=== PATIENT | female | born 1995 | race Caucasian/White ===

== ENCOUNTER 2017-08-27 11:21 | Emergency (ER) | payer BC, OTHER ==
[~2017-08-27] VITALS: Ht 162.6 cm; Wt 58.4 kg
[~2017-08-27 11:21] MED LIST: BCPILLS PO
[2017-08-27 11:34] VITALS: TEMP 37; Ht 162.6 cm; Wt 58.4 kg
--- NOTE | 2017-08-27 11:57 | DIAGNOSTIC IMAGING REPORT ---
LEFT ANKLE 3 VIEWS CLINICAL HISTORY: Left ankle injury. FINDINGS: 3 views of left ankle are obtained. No prior studies are available for comparison at the time of dictation. The skeletal structures are well mineralized. No fracture is seen. The ankle mortise is intact. An os trigonum is incidentally noted. No joint effusion is seen. Mild soft tissue swelling is noted. IMPRESSION: There is no radiographic evidence of left ankle fracture. Electronically signed by: Andres Jin M.D. 08/27/2017 11:56 AM Dictated Date/Time: 08/27/2017 11:55 AM
[2017-08-27 12:48] VITALS: BP 127/71; PULSE 65; O2SAT 99
--- NOTE | 2017-08-27 15:07 | EMERGENCY ROOM VISIT NOTE ---
History First contact with patient: 11:37 Chief Complaint: ANKLE PAIN Stated Complaint: SWOLLEN BRUISED ANKLE History of Present Illness The patient is a 22 year old female who presents to the Emergency Room with complaints of persistent left ankle swelling and bruising. The patient reports that she attempted to block a shot, and when she came down, had a forced dorsiflexion of the ankle and now has pain over the lateral ankle region. She denies any pain extending into the mid foot, distal metatarsals, phalanges, calcaneus or Achilles tendon. Ring worsens her pain to a 5 out of 10. She currently rates her discomfort a 2 out of 10. She denies any paresthesias or numbness of the foot or toes. Review of Systems 10 system review was performed and was negative except for pertinent positives and negatives as indicated in history of present illness Past Medical/Surgical History Medical Problems: (1) History of multiple concussions Surgical Problems: (1) History of appendectomy (2) History of tonsillectomy Family History FH: cancer FH: heart disease Social History Smoking Status: Never Smoker Alcohol Use: occasionally Marital Status: single Housing Status: lives with roommate Occupation Status: Al[employer] student Current/Historical Medications Scheduled Control Pills ( Control Pills), 1 TAB PO DAILY Physical Exam Vital Signs Date Time Temp Pulse Resp B/P (MAP) Pulse Ox O2 Delivery O2 Flow Rate FiO2 08/27/17 12:48 65 18 127/71 99 08/27/17 11:34 37.0 63 18 124/73 99 Room Air Physical Exam CONSTITUTIONAL: Healthy and well nourished. Alert and oriented X 3 with positive affect. Patient does not appear in any acute distress. HEENT: Normocephalic, atraumatic. Pupils equal, round and reactive. NECK: Full active range of motion without discomfort. MUSCULOSKELETAL: Examination shows mild dependent ecchymosis over the lateral ankle region. She has minimal tenderness over the lateral ligaments. No significant tenderness over the deltoid ligament. Negative anterior draw. No focal tenderness to palpation of the dorsal midfoot, metatarsals, phalanges, calcaneus or Achilles tendon. Pedal pulses are intact. INTEGUMENTARY: No rash or other significant dermatologic conditions noted. NEUROLOGIC: Left foot and toes are sensory intact. Medical Decision & Procedures ER Provider Diagnostic Interpretation: My interpretation of left ankle x-rays does not show any acute fractures, dislocation or ankle mortise asymmetry. Radiologist report is as follows: LEFT ANKLE 3 VIEWS CLINICAL HISTORY: Left ankle injury. FINDINGS: 3 views of left ankle are obtained. No prior studies are available for comparison at the time of dictation. The skeletal structures are well mineralized. No fracture is seen. The ankle mortise is intact. An os trigonum is incidentally noted. No joint effusion is seen. Mild soft tissue swelling is noted. IMPRESSION: There is no radiographic evidence of left ankle fracture. ED Course Patient history and physical exam were performed. Nurse's notes were reviewed. Vital signs were reviewed and were normal. X-rays of the left ankle were normal. The patient was offered crutches but refused. She was encouraged to intermittently apply ice and perform range of motion exercises of the ankle to prevent stiffness. She was encouraged to minimize weight until symptoms improve. She was encouraged to follow-up with orthopedics if symptoms are not improving within the next week. Ibuprofen and Tylenol if needed for additional pain relief. The patient was happy with plan of care, voiced understanding of all discharge instructions, and rated her discomfort a 2 out of 10 at the time of discharge. Medical Decision Medication Reconcilliation Current Medication List: was personally reviewed by me Blood Pressure Screening Patient's blood pressure: Normal blood pressure Impression Primary Impression: Left ankle sprain Departure Information Referrals [facility] (PCP) Patient Instructions My [facility] Problem Qualifiers Primary Impression: Left ankle sprain Encounter type: initial encounter Involved ligament of ankle: unspecified ligament Qualified Codes: S93.402A - Sprain of unspecified ligament of left ankle, initial encounter
== END 2017-08-27 12:49 | disposition home or self-care (01) ==
LOC: C.EDB 11:22 → C.EDD 12:49
DX: S93.402A Sprain of unspecified ligament of left ankle, initial encounter (principal); X58.XXXA Exposure to other specified factors, initial encounter; Z98.890 Other specified postprocedural states; Z80.9 Family history of malignant neoplasm, unspecified; Z82.49 Family history of ischemic heart disease and other diseases of the circulatory system